=== PATIENT | female | born 1985 | race Caucasian/White ===

== ENCOUNTER 2016-04-08 10:42 | Emergency (ER) | payer OTHER ==
[~2016-04-08] VITALS: Ht 160 cm; Wt 55.0 kg
[~2016-04-08 10:42] MED LIST: AMOX-366 PO; BUSP7.5T5 PO
[2016-04-08 10:44] VITALS: BP 113/69; PULSE 93; RESP 16; O2SAT 100
--- NOTE | 2016-04-08 10:55 | ED.REPORT ---
HPI-Chest Pain Under 40 Date of Service Apr 08, 2016 ED Provider: Dr. Grace Pt is a 31 y/o female w/ a hx of anxiety, hyperthyroid, presenting to the ED c/ o increasing frequency of intermittent irregular heart palpitations onset yesterday night. Her palpitations occur about every 2 minutes and cause her mild SOB. She has experienced these palpitations before but not of this frequency. Her symptoms occur only when she is sitting or laying down. She has been more stressed and anxious recently. She denies CP, abdominal pain, nausea, vomiting, fever, cough, chills, diaphoresis. Her thyroid level was recently checked and were normal. She has not been taking any thyroid medication for the past 2 years because her values have been consistently normal. She denies history of cardiac disease. She does not drink caffeine but experiences palpitations if she does. She denies alcohol use. Nursing Notes Stated Complaint: HEART PALPITATIONS Chief Complaint: Dysrhythmia/Cardiac Nursing Notes Reviewed: Yes Allergies: Coded Allergies: clindamycin (Verified Allergy, Intermediate, 05/02/15) itchy and burning hydrocodone bitartrate (Verified Allergy, Mild, ITCH, 05/02/15) codeine (Verified Allergy, Unknown, 05/02/15) Scheduled Amoxicillin/Clav K 875-125 mg (Augmentin 875-125 mg) 1 Each Tablet 1 TABLET PO BID Buspirone (Buspirone) 7.5 Mg Tablet 7.5 MG PO DAILY General Time Seen by MD: 10:55 Chief Complaint Other (Palpitations) Hx Obtained From: Patient Arrived By: Walk-in Sudden in Onset?: No Onset Occurred: 13 - 16 hours ago Symptom Duration: Since onset Severity: Current: No pain currently Severity: Maximum: No pain Similar Sx Previous: Yes Past Medical History Past Medical History Hyperthyroid Anxiety Depression Panic attacks Past Surgical History Appendectomy Smoking History Former Smoker Social History Alcohol Use: Denies alcohol use Drug Use: Denies drug use Other Social History: Good social support Ambulatory Status Independent Review of Systems Constitutional: Denies: Chills, Fever Respiratory: Reports: Shortness of breath, Denies: Non-productive cough Cardiovascular: Reports: Palpitations, Denies: Chest pain GI: Denies: Abdominal pain, Diarrhea, Nausea, Vomiting Psychiatric: Reports: Anxiety, Stress Complete sys rev & neg: except as marked. Physical Exam Initial Vital Signs Vital Signs (First) Date Time Temp Pulse Resp B/P Pulse Ox O2 Delivery O2 Flow Rate FiO2 04/08/16 10:44 36.3 93 16 113/69 100 Room Air Initial VS: Reviewed, Vital signs normal Head / Eyes: Atraumatic, Normocephalic, PERRL ENT: Mucous membranes moist, Conjunctiva normal, No scleral icterus Neck: Supple, Full range of motion Abdomen / GI: Soft, Non-tender, No distention Extremities: Vascular intact, Neuro intact, No swelling, No tenderness Skin: Warm, Dry, No cyanosis Neurologic: Alert, Oriented, Nonfocal Psychiatric: Mood/affect normal, Behavior normal, Normal thought content General/Constitutional: Awake, Alert, No acute distress, Well appearing, Cooperative, Not toxic appearing Respiratory / Chest: Atraumatic, Breath sounds NL, Breath sounds = bilat, No respiratory distress, No rales, No rhonchi, No wheezing, No retractions, No stridor, No chest tenderness, No chest wall deformity, No crepitus Cardiovascular: Heart rate NL, Regular rhythm, Heart sounds NL, No gallop, No murmurs, No rubs, Cap refill not delayed, Peripheral circulation NL Occasional PACs and PVCs visible on monitor which recreate her symptoms Interpretation & Diagnostics Lab Results Interpretation Result Diagram: 04/08/16 1106 04/08/16 1106 Test 04/08/16 11:06 White Blood Count 3.6th/mm3 (3.8-10.1) Red Blood Count 4.27mil/mm3 (3.90-5.20) Hemoglobin 11.1g/dL (12.0-15.6) Hematocrit 35.3% (35.0-46.0) Mean Corpuscular Volume 82.7fL (81-100) Mean Corpuscular Hemoglobin 26.0pg (27.0-35.0) Mean Corpuscular Hemoglobin Concent 31.4% (32.0-37.0) Red Cell Distribution Width 13.9% (12.3-15.4) Platelet Count 348bil/L (150-400) Neutrophils (%) (Auto) 50.8% (40-74) Lymphocytes (%) (Auto) 34.0% (14-46) Monocytes (%) (Auto) 12.1% (4-12) Eosinophils (%) (Auto) 1.7% (0-5) Basophils (%) (Auto) 1.4% (0-3) Sodium Level 137mEq/L (134-144) Potassium Level 3.9mEq/L (3.5-5.2) Chloride Level 103mEq/L (97-108) Carbon Dioxide Level 22mmol/L (18-29) Blood Urea Nitrogen 12mg/dL (6-20) Creatinine 0.58mg/dL (0.57-1.00) Estimat Glomerular Filtration Rate 171mL/min (>59) Glucose Level 98mg/dL (60-99) Calcium Level 8.8mg/dL (8.5-10.1) Magnesium Level 1.9mg/dL (1.6-2.6) Total Bilirubin 0.5mg/dL (0.0-1.2) Aspartate Amino Transf (AST/SGOT) 14U/L (0-50) Alanine Aminotransferase (ALT/SGPT) 12U/L (0-32) Alkaline Phosphatase 57U/L (25-150) Troponin T < 0.010ug/L (0.0-0.011) Total Protein 7.3g/dL (6.4-8.4) Albumin 4.2g/dL (3.4-5.0) Thyroid Stimulating Hormone (TSH) 2.340uIU/mL (0.450-4.500) Hold Zuñiga Top Tube Received (Received) ECG Interpretation Time: 11:07 Interpreted by: ED physician Normal ECG Interpretation: Normal ECG w/ rate of... (71), Normal rate, Normal sinus rhythm, No acute ischemic changes, Normal QRS, Normal axis, Normal intervals, Adequate tracing Re-Eval/Medical Decision Source of Hx: Old records, Family Re-Evaluation/Progress : Time of Eval: 12:08 Re-Evaluation/Progress Note: Pt rechecked. Informed pt of plan for treatment. Pt understands and agrees with plan for treatment. F/U instructions and RTER warnings given. All questions addressed. Counseled Regarding: Diagnosis, Lab results, Need for follow-up, When/why to return to ED Discharge & Departure Primary Impression: Premature atrial contractions Additional Impression: Premature ventricular contractions Disposition: Home Discharge Condition All VS Reviewed: Yes Condition: Stable Patient Instructions: Palpitations (ED) Additional Instructions: The palpitations you are experiencing are PVCs and PACs (premature atrial and ventricular contractions). These rhythm problems are almost never dangerous. If they continue to any significant degree beyond a week or 2, I recommend follow-up with Dr. Zamora for further evaluation as indicated. If you faint or have severe chest pain, return to the emergency Department right away. Referrals: Jerry Zamora MD Attestation Portions of this note were transcribed by Steve Mercado. I, Dr. Grace personally performed the history, physical exam and medical decision-making; I reviewed and confirmed the accuracy of the information in the transcribed note. Signed by Selvin Huynh, 04/08/16 - 1200 copies to: Jerry Zamora MD, Kirk H MD Apr 08, 2016 10:55 STEVE MERCADO Apr 08, 2016 11:02
[2016-04-08 11:12] LABS: BASOPHILS % (AUTO) 1.4 % (0-3); EOSINOPHILS % (AUTO) 1.7 % (0-5); MONOCYTES % (AUTO) 12.1 % (4-12); Mean Corpuscular Volume 82.7 fL (81-100); NEUTROPHILS % (AUTO) 50.8 % (40-74); Platelet Count 348 bil/L (150-400)
[2016-04-08 11:16] VITALS: BP 109/63; PULSE 76; RESP 18; O2SAT 100
[2016-04-08 11:57] LABS: Magnesium 1.9 mg/dL (1.6-2.6)
[2016-04-08 12:00] LABS: TROPONIN T < 0.010 ug/L (0.0-0.011)
[2016-04-08 12:23] VITALS: BP 101/60; PULSE 69; O2SAT 99
[2016-04-30] MEDS ORDERED: FERR-83 PO (17:20)
== END 2016-04-08 12:24 | disposition home or self-care (01) ==
LOC: SED 10:42
DX: I49.1 Atrial premature depolarization (principal); I49.3 Ventricular premature depolarization; F41.9 Anxiety disorder, unspecified; Z86.39 Personal history of other endocrine, nutritional and metabolic disease; Z87.891 Personal history of nicotine dependence; Z88.1 Allergy status to other antibiotic agents; Z88.5 Allergy status to narcotic agent

== ENCOUNTER 2016-05-02 11:57 | Day surgery (SDC) | payer OTHER ==
[~2016-05-02] VITALS: Ht 162.6 cm; Wt 53.9 kg
[2016-05-02] VITALS (8 sets, daily range): BP systolic 106–121; BP diastolic 52–75; PULSE 71–103; RESP 16–21; O2SAT 100
[~2016-05-02 11:57] MED LIST changes: -AMOX-366 PO; -BUSP7.5T5 PO; +CeFAZolin Inj 2 GM in IV Premix 1 EACH IV ONE; +FERR-83 PO
[2016-05-02] MEDS ORDERED: EPHEDrine/NS 5 mg/mL 5 mL Syringe ONE (11:58)
[2016-05-02] MEDS ORDERED: fentaNYL-PF 50 mCg/mL 2 mL Inj ONE (11:58)
[2016-05-02] MEDS ORDERED: Dexamethasone 4 mg/mL Inj ONE (11:58)
[2016-05-02] MEDS ORDERED: Propofol 10,000 mCg/mL 20 mL Inj ONE (11:58)
[2016-05-02] MEDS ORDERED: Ondansetron 2 mg/mL 2 mL Inj ONE (11:58)
[2016-05-02] MEDS: Lactated Ringer's 1,000 ML IV SCH ×2 (12:34→14:00)
[2016-05-02] MEDS ORDERED: CeFAZolin Inj 2 gm / 50mL D5W IV ONE (13:06)
--- NOTE | 2016-05-02 14:25 | PCM.HPANE ---
Patient Data Date of Service: May 02, 2016 Surgeon Admitting Provider: Attending Provider:Joni Pierce MD Primary Care Physician:Jerry Zamora MD Other Provider: Reason for Visit Micromastia Ht/WT & BMI Height (Feet): 5 Height (Inches): 4 Weight (Kilograms): 53.9 Body Mass Index 20.00 Allergies Coded Allergies: clindamycin (Verified Allergy, Intermediate, 05/02/15) itchy and burning hydrocodone bitartrate (Verified Allergy, Mild, ITCH, 05/02/15) [place] (Verified Allergy, Unknown, 05/02/16) acetaminophen (Verified Allergy, Unknown, 05/01/16) codeine (Verified Allergy, Unknown, 05/02/15) pomegranate (Verified Allergy, Unknown, 05/02/16) vancomycin (Verified Allergy, Unknown, 05/01/16) Past Anesthesia History Anesthesia History: Denies:: Anesthesia Reactions Diabetes History Hx Diabetes?: No MRSA MRSA: Yes (THIS HOSPITALIZATION) Medications Home Meds Incl Beta Agustin: No Reported Medications Ferrous Sulfate 325 Mg [id number] Mg PO DAILY 30 Days Ref 0 04/30/16 Discontinued Reported Medications Buspirone 7.5 Mg Tablet7.5 Mg PO DAILY 30 Days Ref 0 04/24/14 Discontinued Scripts Amoxicillin/Clav K 875-125 mg (Augmentin 875-125 mg)1 Each Tablet1 Tablet PO BID #20 TABLET Ref 0 Prov:Brent Chau 05/02/15 History History of ENT Problems?: No HEENT History: Denies:: Cataracts Dysphagia Sinus Problem Denture Type: Partial- Upper Hx of Heart Problems?: Yes Cardiovascular History: Positive for:: Heart Murmur (HEART MURMUR A CHILD) Irregular Heartbeat (PACs, palpitations) Denies:: Cardiac Surgery Chest Pain Congestive Heart Failure Edema Hypertension Pacemaker Thrombophlebitis Hx of Respiratory Problem?: No Respiratory History: Denies:: Asthma COPD Chest Surgery Dyspnea Emphysema Hemoptysis Oxygen Administration Pneumonia Tuberculosis Use of C-PAP Machine Hx Neurologic Problems?: No Neurological History: Denies:: Alzheimer's Disease CVA Dementia Dizziness Headaches Parkinson's Disease Seizures Hx of GI Problems?: No Gastrointestinal History: Positive for:: Heartburn Denies:: Diverticulitis Gastrointestinal Bleeding Hepatitis Hiatal Hernia Rectal Bleeding Hx of Problems?: No Genitourinary History: Denies:: Kidney Stones Urinary Tract Infection Female Hx: Positive for:: Problems with Breasts? (micromastia current admission problem) Denies:: Currently Endometriosis Pelvic Inflammatory Hx Musculoskeletal Problems?: No Musculoskeletal History: Denies:: Back Injury Joint Replacement Musculoskeletal Trauma Hx of Psycho/Social Problems?: Yes Psycho Social History: Positive for:: Anxiety (panic attacks) Hx Depression Denies:: Bipolar Disorder Hx Any Other Health Problems?: Yes Other History: Positive for:: Hospitalization (AT AGE 1 FOR EPIGLOTTITIS, CHILDBIRTH) Denies:: Cancer Thyroid Disease History Blood Transfusions: Denies:: Blood Transfusions Hx Diabetes: No Hx Alcohol Use: NoHx Substance Use: No Smoking Status: Former Smoker Have You Smoked inLast 12 mo: No Stop/Bang Treated for Sleep Apnea?: No Do You Have a CPAP Machine?: No S-Snoring: Do You Snore Loudly: No T-Tired: feel tired, fatigued: No O-Obsered: Observed not breath: No P-Blood Pressure: treated: No B- Body Mass Index > 35 kg/m2: No A- Age over 50: No N- Neck Large Circumference: No G- Gender Male: No CHUCKIE Total Score: 0 CHUCKIE Risk Assessment: Low Risk, <3 Yes Risk Assessment Category Category 1A: Patient has history of documented sleep apnea, and HAS NOT received any narcotic, sedative or anesthesia administration during this stay. Category 1B: Patient has history of documented sleep apnea, and HAS received any narcotic , sedative or anesthesia administration during this stay Category 2: Patient has SUSPECTED Obstructive Sleep Apnea, and HAS received any narcotic , sedative or anesthesia administration during this stay. Category 3: Patient has SUSPECTED Obstructive Sleep Apnea and HAS NOT received narcotic, sedative or anesthesia administration during this stay. Category 4: Outpatient in Procedural Areas with known sleep apnea or who screen positive for High Risk via the STOP/BANG questionnaire. Exam Exam Vital Signs Vital Signs Date Time Temp Pulse Resp B/P Pulse Ox O2 Delivery O2 Flow Rate FiO2 05/02/16 12:45 36.8 98 18 114/72 100 Room Air General Appearance: Alert, Oriented X3 HEENT/AIRWAY: MP 1 Lungs: Clear to Auscultation, Normal Air Movement Heart: Exam Unremarkable, Normal S1, Normal S2, No Murmurs/Rubs/Gallops Meds/Labs/Diagnostics Admission Meds Current Medications Lactated Ringer's (Lr) 1,000 ml @ 120 mls/hr [id number] IV Last administered on t 12:34; Start 05/02/16 at 05:00; Stop 05/02/16 at 13:19; Status DC Plan Impression Patient chart reviewed, patient interviewed and anesthestic plan with risks, benefits, and alternatives discussed, and informed consent obtained. NPO Status: 0545 05/02 ASA Physical Status: ASA1 Normal Healthy Anesthetic Plan: GA Bene/Risks/Altern/Consents: Yes HP Complete Prior to Induction: Yes Other Pt declines regional anesthesia in the form of paravertebral block Kavon Bryant DO May 02, 2016 14:25
[2016-05-02] MEDS ORDERED: Bupivacaine 0.5% 50 mL Inj INFILTRATE ONE (14:55)
[2016-05-02] MEDS ORDERED: Lactated Ringer's 1,000 ML IV SCH (15:09)
[2016-05-02] MEDS ORDERED: Lactated Ringer's 500 ML IV PRN (15:09)
[2016-05-02] MEDS ORDERED: Labetalol 5 mg/mL 4 mL Inj IV PRN (15:10)
[2016-05-02] MEDS ORDERED: Atropine 0.4 mg/mL Inj IVPUSH PRN (15:10)
[2016-05-02] MEDS ORDERED: EPHEDrine Sulfate 50 mg/mL Inj IVPUSH PRN (15:10)
[2016-05-02] MEDS ORDERED: Phenylephrine 10,000 mCg/mL Inj IVPUSH PRN (15:10)
[2016-05-02] MEDS ORDERED: Ondansetron 2 mg/mL 2 mL Inj IVPUSH PRN (15:10)
[2016-05-02] MEDS ORDERED: fentaNYL-PF 50 mCg/mL 2 mL Inj IVPUSH PRN (15:10)
[2016-05-02] MEDS ORDERED: Dexamethasone 4 mg/mL Inj IVPUSH PRN (15:10)
[2016-05-02] MEDS ORDERED: MetoCLOpramide 5 mg/mL 2 mL Inj IVPUSH PRN (15:10)
[2016-05-02] MEDS ORDERED: HYDROmorphone 1 mg/mL Inj IVPUSH PRN (15:10)
--- NOTE | 2016-05-02 16:01 | PCM.ANEP1 ---
Post Anesthesia Phase 1 PACU Phase 1 Assessment Date of Service: May 02, 2016 Vital Signs Vital Signs Date Time Temp Pulse Resp B/P Pulse Ox O2 Delivery O2 Flow Rate FiO2 05/02/16 15:51 36.6 90 18 121/75 100 Simple Mask 05/02/16 12:45 36.8 98 18 114/72 100 Room Air Level of Alertness: Drowsy, not talking SOLANO's with Equal Strength: Yes Pain: No Nausea or Vomiting: No Oxygen Delivery: Simple Mask (6l) Lungs: Clear to Auscultation, Normal Air Movement Dermatome Level: Full Sensation Kavon Bryant DO May 02, 2016 16:01
[2016-05-02] MEDS ORDERED: HYDROcodone-APAP 10-325 mg PO PRN (16:05)
--- NOTE | 2016-05-02 17:01 | PCM.ANEP2 ---
Post Anesthesia Evaluation ASA/CMS Post Anesthesia Date of Service: May 02, 2016 VS in Patient's Normal Range?: Yes Resp Stable; Airway Patent?: Yes CV Function & Hydration Stable: Yes Mental Status Recovered?: Yes Pain control Satisfactory?: Yes N/V Control Satisfactory?: Yes Kavon Bryant DO May 02, 2016 17:01
--- NOTE | 2016-05-03 23:55 | OP ---
[address] [address] OPERATIVE REPORT PATIENT: ANA MARK : 1985 MR#: [id number] ADMIT: 05/02/2016 JOB ID: [id number] DATE OF SURGERY: 05/02/2016 PREOPERATIVE DIAGNOSIS(ES): Bilateral breast deflation and micromastia. POSTOPERATIVE DIAGNOSIS(ES): Bilateral breast deflation and micromastia. PROCEDURE: Bilateral augmentation mammoplasty. SURGEON: Attending surgeon: Joni Pierce MD. SHOP REPAIRER: Jessica Francisco PA-C, who was present for necessary retraction, exposure and closure. ANESTHESIA: General anesthesia. ESTIMATED BLOOD LOSS: 10 cc. COMPLICATIONS: None apparent. IMPLANT: Bilateral Allergan MP68, model profile 390-420 cc saline implant. The right side is filled to 420 and the left side filled to 390 cc. INDICATIONS FOR PROCEDURE: This is a 31-year-old female patient with significant deflation and micromastia. Patient desires breast enlargement. At this point, bilateral augmentation mammoplasty are indicated. Patient elected to proceed with subglandular saline implants. PROCEDURE AND FINDINGS: The patient was identified in the preoperative area and surgical site was marked. With the patient in sitting position, midline was marked. The desired implant position was also marked. The inferior border of the pocket was at the inframammary fold and the medial border of the pocket is approximately 1.5 cm from the midline. Superiorly, the superior border of the pocket is marked 4 cm above the maximal dimension of the implant. Lateral border was approximately at the lateral edge of the breast. The patient was then taken back to the operating room, placed supine on the operating table. Appropriate time-outs were taken. General anesthesia was induced smoothly. The patient was then prepped and draped in the usual sterile manner. Local anesthesia was then infiltrated along the border of the sternum bilaterally, as well as along the lateral axillary line and the lateral border of the breast. Local anesthesia was also infiltrated around the incision. The incision was then made on the right breast in the inframammary area right at the inframammary fold. A 5 cm incision was made. I then carried the dissection superiorly along the deep fascia until I encountered the pectoralis major muscle. I then dissected above the pectoralis major fascia until I reached the previously marked pocket border. Once this has been done, hemostasis was obtained with electrocautery. The pocket was then rinsed with antibiotic solution. An Allergan MP68 390 cc implant was then obtained and air removed. It was then placed into the pocket. It was then filled to 420 cc. The fill tube was removed and the valve was checked and was found to be well seated. The incision was then reapproximated first with a layer of 3-0 Vicryl aslvee-uk-[id number] sutures reapproximating the deep breast capsule to the soft tissue just at the inframammary fold. A layer of 3-0 Vicryl [id number]-cauwp sutures were then used to reapproximate the deep soft tissue. A layer of 3-0 Monocryl deep dermal sutures were then placed, followed by 4-0 Monocryl running subcuticular suture. I then turned my attention to the right breast. Again, incision was made along the inframammary fold and a similar dissection was carried out. Once hemostasis was obtained and the pocket irrigated with antibiotic solution, another Allergan MP68 moderate profile saline implant was obtained. Air was removed. It was then placed into the pocket and inflated to 420 cc. At this point, it was noted that the left side was just slightly larger than the right; 30 cc was removed, making the final fill 390 cc. Once this has been done, the incision was first closed with a layer of 3-0 Vicryl lkmsju-kb-aeugo sutures reapproximating the deep breast capsule to the soft tissue just at the inframammary fold. A layer of 3-0 Vicryl dlkceu-gq-qkgeh sutures were then placed, reapproximating the soft tissue superior to that and superficial to that, and a layer of 3-0 Monocryl deep dermal sutures were then placed, followed by 4-0 Monocryl running subcuticular suture. The patient tolerated the procedure well. Needle count, sponge count and instrument count were correct at the end of the procedure. The patient was transported to recovery in stable condition, where a breast band was applied to the superior aspect of both breasts. ISIDRO
== END 2016-05-02 23:59 | disposition home or self-care (01) ==
LOC: SAS 11:57
PROVIDERS: ATTEND Plastic Surgery
DX: N64.82 Hypoplasia of breast (principal); D50.9 Iron deficiency anemia, unspecified

== ENCOUNTER 2016-05-18 12:42 | Emergency (ER) | payer OTHER ==
[~2016-05-18] VITALS: Ht 162.6 cm; Wt 53.6 kg
[~2016-05-18 12:42] MED LIST changes: -CeFAZolin Inj 2 GM in IV Premix 1 EACH IV ONE
[2016-05-18 12:52] VITALS: BP 108/74; PULSE 80; RESP 16; O2SAT 100
[2016-05-18] MEDS ORDERED: ETON1VAG (12:55)
== END 2016-05-18 14:21 | disposition left against medical advice (07) ==
LOC: SED 12:42
DX: Z53.20 Procedure and treatment not carried out because of patient's decision for unspecified reasons (principal)